=== PATIENT | male | born 1935 | race Caucasian/White ===

== ENCOUNTER 2017-10-29 14:41 | Emergency (ER) | payer OTHER ==
[~2017-10-29] VITALS: Ht 177.8 cm; Wt 82.6 kg
[2017-10-29] MEDS ORDERED: METFORMIN HCL500 MG PO (14:55)
[2017-10-29] MEDS ORDERED: CARDURA4 MG PO (14:55)
[2017-10-29] MEDS ORDERED: PROSCAR 5MG TABL5 MG PO (14:55)
[2017-10-29] MEDS ORDERED: PLAVIX 75 MG TA75 M1 PO (14:56)
[2017-10-29] MEDS ORDERED: LIPITOR 20 MG T20 M1 PO (14:56)
[2017-10-29 15:15] LABS: ABSOLUTE MONOCYTES 0.6 thou/uL (0.0-1.2); ABSOLUTE NEUTROPHILS 4.3 thou/uL (1.6-8.1); BASOPHILS 0.4 %; EOSINOPHILS 0.7 %; HEMATOCRIT 41.1 % (42.0-52.0); HEMOGLOBIN 14.3 gm/dL (14.0-18.0); LYMPHOCYTES 16.9 %; MCH 32.9 pg (26.0-34.0); MCHC 34.8 g/dL (28.0-37.0); MCV 94.4 fL (80.0-100.0); MONOCYTES 10.1 %; MPV 8.2 fl. (7.2-11.1); NUCLEATED RBCS 0 /100WBC; PLATELET COUNT* 229 thou/uL (150-400); POLYS 71.9 %; RBC 4.35 mil/uL (4.50-6.00); WBC 5.9 thou/uL (4.0-11.0)
[2017-10-29 15:19] LABS: CALCIUM 8.3 mg/dL (8.5-10.1); CREATININE 1.2 mg/dL (0.6-1.3); POTASSIUM 4.3 mmol/L (3.5-5.1)
[2017-10-29 15:24] LABS: ALBUMIN 3.3 g/dL (3.4-5.0); TOTAL BILIRUBIN 0.6 mg/dL (<0.1-1.0); TOTAL PROTEIN 7.2 g/dL (6.4-8.2)
[2017-10-29 16:51] VITALS: BP 146/72
== END 2017-10-29 16:52 | disposition home or self-care (01) ==
LOC: M.ERS 14:41
PROVIDERS: Nurse Practitioner Family
DX: K59.00 Constipation, unspecified (principal); E11.9 Type 2 diabetes mellitus without complications; E78.00 Pure hypercholesterolemia, unspecified